=== PATIENT | female | born 2000 | race Asian ===

== ENCOUNTER 2018-10-23 18:51 | Emergency (ER) | payer OTHER ==
[~2018-10-23] VITALS: Ht 157.5 cm; Wt 62.8 kg
[2018-10-23 18:54] VITALS: BP 130/87
--- NOTE | 2018-10-23 19:16 | NUR ---
PT URINE COLLECTED AND SENT TO LAB. PT RESTING IN [facility] AT THIS TIME;
[2018-10-23 19:45] LABS: CULTURE INDICATED? YES; HCG UR SG 1.025 (1.003-1.030); MICROSCOPIC INDICATED
--- NOTE | 2018-10-23 20:33 | NUR ---
PT D/C WITH D/C SUMMARY AND SCRIPTS. ALL QUESTIONS ANSWERED. PT VERBALIZES UNDERSTANDING OF [facility]OM[facility] INSTRUCTIONS AND F/U CARE. PT AMBULATES TO REGISTRATION DESK WITH STEADY GAIT FOR D/C HOME. PT DENIES ANY OTHER NEEDS PERTAINING TO THIS VISIT.
== END 2018-10-23 20:40 ==
LOC: ED 19:32
DX: N30.00 Acute cystitis without hematuria (principal)
CPT/HCPCS: 81001; 81025; 87077; 87086; 87186; 99283